=== PATIENT | female | born 1995 | race Caucasian/White ===

== ENCOUNTER 2020-06-29 04:18 | Emergency (ER) | payer OTHER, MEDICAID ==
[~2020-06-29] VITALS: Ht 160 cm; Wt 74.8 kg
[2020-06-29 05:00] VITALS: BP 134/92
== END 2020-06-29 05:00 | disposition short-term general hospital (02) ==
LOC: M.ERS 04:18
DX: O26.893 Other specified pregnancy related conditions, third trimester (principal); O75.89 Other specified complications of labor and delivery; Z20.828 Contact with and (suspected) exposure to other viral communicable diseases; Z3A.39 39 weeks gestation of pregnancy